=== PATIENT | male | born 1945 | race Caucasian/White ===

== ENCOUNTER → 2021-08-05 | Outpatient (CLI) | payer MEDICARE ==
[~2021-08-05] MED LIST: ASPI81TA52 PO; CETI-90 PO; ESOM20CA PO; LEVO500T90 PO
== END | disposition home or self-care (01) ==
LOC: RAD 08:13
PROVIDERS: ATTEND Psychiatry & Neurology Neurology
DX: G20 Parkinson's disease (principal); R40.4 Transient alteration of awareness
CPT/HCPCS: 95819